=== PATIENT | female | born 1990 | race Caucasian/White ===

== ENCOUNTER 2018-10-23 19:51 | Emergency (ER) | payer SELFPAY ==
[~2018-10-23] VITALS: Ht 170.2 cm; Wt 88.6 kg
[2018-10-23 19:59] VITALS: Ht 170.2 cm; Wt 88.6 kg
[2018-10-23 20:18] LABS: BASOPHILS 0.3 % (0-2); EOSINOPHILS 0.9 % (0-7); HEMATOCRIT 37.5 % (36.0-48.0); HEMOGLOBIN 12.8 g/dL (12-16); IMMATURE GRANULOCYTES 0.1 % (0-5); LYMPHOCYTES 24.7 % (15-50); MCH 32.7 pg (26.0-34.0); MCHC 34.1 g/dL (31.0-37.0); MCV 95.7 fL (80.0-100.0); MEAN PLATELET VOLUME 10.2 fL (7.4-10.4); MONOCYTES 8.2 % (2-11); NEUTROPHILS 65.8 % (40-80); PLATELET COUNT 233 10x3/uL (130-400); RBC 3.92 10x6/uL (4.00-5.40); RDW 12.3 % (11.5-14.5); WBC 6.8 10x3/uL (4.8-10.8)
[2018-10-23 20:36] LABS: HCG SERUM NEGATIVE (NEGATIVE)
[2018-10-23 20:40] LABS: APTT 30.6 SECONDS (22.8-39.4); INR 0.98 (0.85-1.17); PROTIME 12.5 SECONDS (11.6-15.0)
[2018-10-23 20:42] LABS: D-DIMER-QUANTITATIVE < 0.27 ug/mLFEU (0.20-0.54)
[2018-10-23 20:46] LABS: ALBUMIN 3.3 g/dL (3.4-5.0); ALKALINE PHOSPHATASE 64 U/L (46-116); ALT (SGPT) 25 U/L (10-68); BILIRUBIN - TOTAL 0.33 mg/dL (0.2-1.3); CALC OSMOLALITY 278 mosm/kg (275-300); CALCIUM 8.6 mg/dL (8.5-10.1); CHLORIDE - SERUM 106 mmol/L (98-107); CREATININE - SERUM 0.7 mg/dL (0.6-1.3); GLUCOSE 84 mg/dL (74-106); POTASSIUM - SERUM 3.9 mmol/L (3.5-5.1); SODIUM 141 mmol/L (136-145); UREA NITROGEN 9 mg/dL (7-18); eGFR NON AFRICAN AMERICAN > 90 mL/min (90-120)
[2018-10-23 20:50] LABS: CKMB 0.5 U/L (0.0-3.6); CREATINE KINASE 44 UL (21-215)
[2018-10-23 20:52] LABS: TROPONIN-I < 0.017 ng/mL (0.000-0.060)
[2018-10-23] MEDS ORDERED: STERAPRED 5MG 65 M1 PO (23:11)
[2018-10-23 23:27] VITALS: BP 123/63
== END 2018-10-23 23:28 | disposition home or self-care (01) ==
LOC: D.ER 19:51
PROVIDERS: Emergency Medicine
DX: M94.0 Chondrocostal junction syndrome [Tietze] (principal)